=== PATIENT | female | born 1970 | race Hispanic/Latino ===

== ENCOUNTER 2020-01-30 22:30 | Emergency (ER) | payer SELFPAY ==
[2020-01-31] MEDS ORDERED: HYDROcodone/Acetaminophen 5/325 mg Tablet ONE (00:33)
[2020-01-31 00:57] LABS: Bilirubin Negative (Negative); Blood, Urine Negative (Negative); Clarity Clear (Clear); Glucose, Urine (Dipstick) Normal (Negative); Ketone, Urine Negative (Negative); Leukocyte 500 Leu/uL (Negative); Nitrite Negative (Negative); Protein, Urine (Dipstick) Negative (Neg-Trace); RBC/HPF 0-3 HPF (0-3); Specific Gravity, Urine 1.014 (1.002-1.036); Urobilinogen Normal mg/dL (Less than 2)
[2020-01-31 01:00] LABS: Bacteria/HPF 1+ HPF (None Seen); Pregnancy Test - Urine (BHCG) Negative (Negative); Pregu Control Background? CLEAR/WHITE (CLR/WHITE); Pregu Control Bar Appear? YES (CONTROL BAR); Specific Gravity 1.014 (1.002-1.036)
--- NOTE | 2020-01-31 07:51 | CT ---
PRELIMINARY REPORT/[facility]/EMERGENCY AFTER HOURS PROCEDURE EXAM: CT Abdomen and Pelvis Without Intravenous Contrast CLINICAL HISTORY: Patient presents with 1 week of left lower back pain. She reports that the pain is intermittent but h as been increasing in intensity. When the pain is severe, it radiates down the front of her left leg. The pain also radiates around to the front. She denies nausea, vomiting, dysuria, and fever. She reports that she was seen at a clinic yesterday and diagnosed with a UTI. She began taking Bactrim yesterday and has had 2 doses. He has been taking ibuprofen for pain without relief. TECHNIQUE: Axial computed tomography images of the abdomen and pelvis without intravenous contrast. Coronal and sagittal reformatted images provided. CONTRAST: None. COMPARISON: None provided. FINDINGS: LUNG BASES: No basilar airspace consolidation or pleural effusion. LIVER: Fatty liver. No focal hepatic lesions. Focal fatty sparing at the gallbladder fossa. GALLBLADDER AND BILE DUCTS: Unremarkable. No calcified stone. No ductal dilation. PANCREAS: Unremarkable. SPLEEN: Unremarkable. ADRENAL GLANDS: Unremarkable. KIDNEYS, URETERS, AND BLADDER: 2 mm stone at the lower pole of the right kidney. 12 mm likely cyst at the midpole of the left kidne y. No hydronephrosis. No ureter or bladder stones. STOMACH AND BOWEL: No obstruction. No wall thickening. No CT evidence of colitis or acute diverticulitis. APPENDIX: No CT evidence for appendicitis. PERITONEUM: No free fluid. No free air. LYMPH NODES: No lymphadenopathy. REPRODUCTIVE: Unremarkable as visualized. VASCULATURE: No aortic aneurysm. ABDOMINAL WALL AND SOFT TISSUES: Unremarkable. BONES: No fracture or suspicious osseous abnormality. IMPRESSION: 1. No acute intra-abdominal or pelvic abnormality. 2. Fatty liver. 3. 2 mm nonobstructing right nephrolith. ELECTRONICALLY SIGNED BY: Frank Winter M.D. Jan 31, 2020 1:12:26 AM [employer] This report is intended for review by the ordering physician only, in accordance of law. If you recei ve this report in error, please call [facility] at [phone]. FINAL REPORT Exam: Abdomen CT without contrast Pelvic CT without contrast HISTORY: Pain COMPARISON: None FINDINGS: Abdomen CT: Lung bases:Clear Heart size: Normal heart size. No significant pericardial fluid Aorta: Normal caliber. No periaortic fat stranding Solid organs: Limited evaluation by the lack of IV contrast. No acute solid organ abnormality. There is scattered hepatic steatosis and fatty sparing in the liver. Lymph nodes: No gastrohepatic, retrocrural or periportal lymphadenopathy Gallbladder: Contracted, likely due to nonfasting state Mesentery: No mass, lymphadenopathy, free air or free fluid Kidneys: Bilaterally no evidence of obstructive uropathy. Nonobstructing 2 mm calculus in the lower p ole of the right kidney. Alimentary canal: Limited evaluation by the lack of oral contrast. No evidence of a bowel obstruction . Normal ileocecal junction. 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 Normal caliber appendix. Scattered fecal material in a nondistended, nondilated colon. Diverti culosis, without evidence of diverticulitis. CT PELVIS: No mass, adenopathy, free air or free fluid. Is no abnormality with regards to the reproductive orga ns. Evaluation is limited by the lack of IV contrast Urinary bladder: Unremarkable. Osseous structures: No lytic or blastic lesions IMPRESSION: 1. This report is in agreement with the initial report by [facility]. 2. Nonobstructing calculus in the right kidney. Bilaterally no obstructive uropathy 3. Hepatic steatosis with areas of fatty sparing. 4. Normal caliber appendix. Transcribed Date/Time: 01/31/2020 8:09 AM
== END 2020-01-31 01:28 | disposition home or self-care (01) ==
LOC: ERS 22:30
DX: N39.0 Urinary tract infection, site not specified (principal)
CPT/HCPCS: 74176; 81003; 81015; 81025

== ENCOUNTER 2023-07-08 06:57 | Outpatient (CLI) | payer OTHER | END 2023-07-08 06:58 | disposition home or self-care (01) | LOC: BICULT 06:57 | PROVIDERS: ATTEND Physician Assistant Medical | DX: K30 Functional dyspepsia (principal); K57.30 Diverticulosis of large intestine without perforation or abscess without bleeding; K76.89 Other specified diseases of liver; Z86.010 Personal history of colon polyps | CPT/HCPCS: 76705 ==